=== PATIENT | male | born 1995 | race Caucasian/White ===

== ENCOUNTER 2021-11-21 11:35 | Emergency (ER) | payer OTHER ==
[~2021-11-21] VITALS: Ht 195.6 cm; Wt 70.3 kg
[2021-11-21 12:30] VITALS: BP 142/88
== END 2021-11-21 16:12 | disposition left against medical advice (07) ==
LOC: ER 11:35
DX: R07.89 Other chest pain (principal); R07.81 Pleurodynia; R30.9 Painful micturition, unspecified; Z53.21 Procedure and treatment not carried out due to patient leaving prior to being seen by health care provider